=== PATIENT | female | born 1965 | race Caucasian/White ===

== ENCOUNTER → 2021-01-06 13:48 | Outpatient (BNVA) | payer OTHER, SELFPAY | PROVIDERS: PCP Internal Medicine; Visit Provider Surgery ==

== ENCOUNTER → 2021-01-25 15:03 | Outpatient (BNV) | payer OTHER, SELFPAY | PROVIDERS: PCP Internal Medicine; Visit Provider Internal Medicine | DX: D05.11 Intraductal carcinoma in situ of right breast (principal); M85.80 Other specified disorders of bone density and structure, unspecified site; Z79.811 Long term (current) use of aromatase inhibitors; Z92.3 Personal history of irradiation | CPT/HCPCS: 99214 ==

== ENCOUNTER 2021-07-13 14:59 | Outpatient (REF) | payer OTHER, SELFPAY ==
--- NOTE | ~2021-07-13 | MM_ITS ---
EXAMINATION: MM SCREENING DIGITAL BREAST TOMOSYNTHESIS, BILATERAL CLINICAL INFORMATION: Screening. Asymptomatic. 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 Due for yearly. COMPARISON: Mammography: 07/07/2020, 05/29/2019, 05/16/2018, outside mammography [facility] 06/23/2017, 12/06/2016 TECHNIQUE: Digital breast tomosynthesis is performed in both the craniocaudal and mediolateral oblique views along with computer-aided detection (CAD). Synthesized 2D images are generated from the tomosynthesis. Additional exaggerated right CC view is provided. FINDINGS: There are scattered areas of fibroglandular density (ACR BI-RADS breast composition Category b). There are postsurgical changes on the right with stable scarring posterior upper outer quadrant. There is no developing density or interval mass. Parenchymal pattern is similar to prior study. No abnormal calcifications. The axilla are unremarkable. No significant changes. MM/MM tomosynthesis screening BI IMPRESSION: No mammographic evidence of malignancy. Post therapy changes right breast. ASSESSMENT: BI-RADS 2: Benign RECOMMENDATION: Routine annual mammography screening. This patient's information was entered into a reminder system with a target due date for their next mammogram.
== END 2021-07-13 15:00 | disposition home or self-care (01) ==
LOC: HO.MAMMO 14:59
PROVIDERS: PCP Internal Medicine; Visit Provider Internal Medicine
DX: Z12.31 Encounter for screening mammogram for malignant neoplasm of breast (principal)
CPT/HCPCS: 77063; 77067

== ENCOUNTER → 2021-08-03 15:31 | Outpatient (BNVA) | payer OTHER, SELFPAY | PROVIDERS: PCP Internal Medicine; Visit Provider Surgery ==

== ENCOUNTER 2021-09-07 14:27 | Outpatient (REF) | payer OTHER, SELFPAY ==
--- NOTE | ~2021-09-07 | MM_ITS ---
EXAMINATION: BONE DENSITOMETRY CLINICAL INDICATION: Osteopenia. On aromatase inhibitor. COMPARISON: Baseline BD dated 02/28/2019. TECHNIQUE: Using a [employer] DXA System (software version: 13.1) manufactured by [employer], dual-energy x-ray absorptiometry was performed of the lumbar spine and left hip. The images are of good technical quality. Summary results are attached. FINDINGS: AP SPINE L1-L4: Current: BMD 1.037 g/cm2, Z-score -0.5, T-score -1.2, osteopenia, 6.4% decrease from baseline (<5% change is not significant). Baseline: BMD 1.108 g/cm2. LEFT FEMUR, NECK: Current: BMD 0.796 g/cm2, Z-score -0.8, T-score -1.7, osteopenia. Baseline: BMD 0.842 g/cm2. LEFT FEMUR, TOTAL: Current: BMD 0.803 g/cm2, Z-score -1.0, T-score -1.6, osteopenia, 5.9% decrease from baseline (<5% change is not significant). Baseline: BMD 0.853 g/cm2. IDENTIFIED RISK FACTORS: Menopause, alcohol (3 or more units per day). HISTORY OF FRACTURE: None listed. MEDICATIONS: Calcium, vitamin D. MM/XR DEXA axial skeleton IMPRESSION: 1. DIAGNOSIS: Osteopenia based on the lowest T-score value of -1.7 in the femoral neck applying World Health Organization criteria. 2. 10-YEAR FRACTURE RISK PREDICTION, FRAX: Major osteoporotic fracture (clinical spine, forearm, hip or shoulder) 8.2%. Hip fracture 0.8%. 3. Treatment Recommendations: NOF guidelines recommend consideration for treatment in postmenopausal women and men age 50 and older presenting with the following: -A hip or vertebral (clinical or morphometric) fracture. -T-score less than or equal to -2.5 at the femoral neck or spine after appropriate evaluation to exclude secondary causes. -Low bone mass at the hip or spine and a 10-year fracture probability by FRAX of greater than or equal to 3% for hip fracture or greater than or equal to 20% for major osteoporotic fracture based on the [place] adapted WHO algorithm. 4. Other Recommendations: All treatment decisions require clinical judgment and consideration of individual patient factors, including patient preferences, comorbidities, previous drug use, risk factors not captured in the FRAX model (e.g. frailty, falls, vitamin D deficiency, increased bone turnover, interval significant decline in bone density) and possible under or overestimation of fracture risk by FRAX. Additional medical evaluation for secondary cause of low bone mineral density may be appropriate. FUTURE SCAN RECOMMENDATION: People with diagnosed cases of osteoporosis or at high risk for fracture should have regular bone mineral density tests. For patients eligible for Medicare, routine testing is allowed once every 2 years. The testing frequency can be increased to one year for patients who have rapidly progressing disease, those who are receiving or discontinuing medical therapy to restore bone mass, or have additional risk factors.
== END 2021-09-07 14:28 | disposition home or self-care (01) ==
LOC: HO.MAMMO 14:27
PROVIDERS: Visit Provider Internal Medicine
DX: Z13.820 Encounter for screening for osteoporosis (principal); M85.80 Other specified disorders of bone density and structure, unspecified site; Z78.0 Asymptomatic menopausal state; Z79.899 Other long term (current) drug therapy
CPT/HCPCS: 77080

== ENCOUNTER → 2022-03-17 10:36 | Outpatient (BNVA) | payer OTHER, SELFPAY | PROVIDERS: PCP Internal Medicine; Visit Provider Surgery | DX: D05.11 Intraductal carcinoma in situ of right breast (principal); Z90.11 Acquired absence of right breast and nipple | CPT/HCPCS: 99212 ==

== ENCOUNTER 2022-07-18 12:28 | Outpatient (REF) | payer OTHER, SELFPAY ==
--- NOTE | ~2022-07-18 | MM_ITS ---
EXAMINATION: MM SCREENING DIGITAL BREAST TOMOSYNTHESIS, BILATERAL CLINICAL INFORMATION: Screening. Asymptomatic. Status post right lumpectomy. COMPARISON: Mammography: 07/13/2021 and studies dating back to 07/10/2012. TECHNIQUE: Digital breast tomosynthesis is performed in both the craniocaudal and mediolateral oblique views along with computer-aided detection (CAD). Synthesized 2D images are generated from the tomosynthesis. Exaggerated right craniocaudal view also performed. FINDINGS: There are scattered areas of fibroglandular density (ACR BI-RADS breast composition category B). Within the inferior aspect of the left breast, approximately 4.5 cm from nipple, there are some calcifications present which are difficult to prove that they are vascular in nature; however, there is no correlate seen on craniocaudal view. Recommend spot magnification view of the left breast in mediolateral oblique projection and 90-degree mediolateral views. Postsurgical architectural distortion is seen upper outer aspect of the right breast. MM/MM tomosynthesis screening BI IMPRESSION: Calcifications inferior left breast for further evaluation with spot magnification views. ASSESSMENT: BI-RADS 0: Incomplete - Need Additional Imaging Evaluation RECOMMENDATION: 1. Additional views of the left breast. 2. Targeted ultrasound if warranted after review of the additional views. 3. Radiology department staff will contact the patient for additional imaging. This patient's information was entered into a reminder system with a target due date for their next mammogram.
== END 2022-07-18 12:29 | disposition home or self-care (01) ==
LOC: HO.MAMMO 12:28
PROVIDERS: PCP Internal Medicine; Visit Provider Internal Medicine
DX: Z12.31 Encounter for screening mammogram for malignant neoplasm of breast (principal)
CPT/HCPCS: 77063; 77067

== ENCOUNTER 2022-07-29 08:56 | Outpatient (REF) | payer OTHER, SELFPAY ==
--- NOTE | ~2022-07-29 | MM_ITS ---
EXAMINATION: MM DIAGNOSTIC DIGITAL MAMMOGRAPHY, LEFT CLINICAL INFORMATION: Recall from screening for question of calcifications lower left breast on synthesized MLO view. Prior history contralateral right high-grade DCIS status post lumpectomy 2017. COMPARISON: Mammography: 07/18/2022, 07/13/2021 TECHNIQUE: Digital mammography is performed in the following views: Magnification MLO, magnification ML. FINDINGS: There are scattered areas of fibroglandular density (ACR BI-RADS breast composition Category b). The additional magnification views show no grouped calcifications. The recent mammography shows no appreciable calcifications on MLO tomography and no grouped calcification on CC view suggesting pseudocalcification digital processing artifact on recent screening. Results are discussed with the patient at time of visit. MM/MM added views LT IMPRESSION: No significant changes from prior studies. No grouped calcifications lower left breast. ASSESSMENT: BI-RADS 1: Negative RECOMMENDATION: Routine annual mammography screening. This patient's information was entered into a reminder system with a target due date for their next mammogram.
== END 2022-07-29 08:57 | disposition home or self-care (01) ==
LOC: HO.MAMMO 08:56
PROVIDERS: PCP Internal Medicine; Visit Provider Internal Medicine
DX: R92.1 Mammographic calcification found on diagnostic imaging of breast (principal)
CPT/HCPCS: 77065

== ENCOUNTER → 2022-09-20 13:55 | Outpatient (BNVA) | payer OTHER, SELFPAY | PROVIDERS: PCP Internal Medicine; Visit Provider Surgery | DX: D05.11 Intraductal carcinoma in situ of right breast (principal); Z79.811 Long term (current) use of aromatase inhibitors | CPT/HCPCS: 99212 ==

== ENCOUNTER → 2023-03-21 13:56 | Outpatient (BNVA) | payer OTHER, SELFPAY | PROVIDERS: PCP Internal Medicine; Visit Provider Surgery | DX: D05.11 Intraductal carcinoma in situ of right breast (principal) | CPT/HCPCS: 99212 ==

== ENCOUNTER 2023-07-24 12:03 | Outpatient (REF) | payer OTHER, SELFPAY ==
--- NOTE | ~2023-07-24 | MM_ITS ---
EXAMINATION: MM SCREENING DIGITAL BREAST TOMOSYNTHESIS, BILATERAL CLINICAL INFORMATION: Screening. Asymptomatic. The patient has a history of conservatively treated right DCIS diagnosed in 2017. COMPARISON: Mammography: This study is compared with prior exams dating back to 2019. TECHNIQUE: Digital breast tomosynthesis is performed in both the craniocaudal and mediolateral oblique views along with computer-aided detection (CAD). Synthesized 2D images are generated from the tomosynthesis. FINDINGS: There are scattered areas of fibroglandular density (ACR BI-RADS breast composition Category b). There are no significant masses, abnormal calcifications, or other abnormalities. There are postsurgical changes in the upper outer quadrant of the right breast. MM/MM tomosynthesis screening BI IMPRESSION: No mammographic evidence of malignancy. ASSESSMENT: BI-RADS BI-RADS 2 - Benign Findings RECOMMENDATION: Routine annual mammography screening. 1 year F/U This examination should not preclude the clinical evaluation of a suspicious palpable abnormality. This patient's information was entered into a reminder system with a target due date for their next mammogram.
== END 2023-07-24 12:04 | disposition home or self-care (01) ==
LOC: HO.MAMMO 12:03
PROVIDERS: PCP Internal Medicine; Visit Provider Internal Medicine
DX: Z12.31 Encounter for screening mammogram for malignant neoplasm of breast (principal)
CPT/HCPCS: 77063; 77067

== ENCOUNTER → 2023-07-24 12:15 | Outpatient (BNV) | payer OTHER, SELFPAY | PROVIDERS: PCP Internal Medicine; Visit Provider Radiology Diagnostic Radiology | DX: Z12.31 Encounter for screening mammogram for malignant neoplasm of breast (principal) | CPT/HCPCS: 77063; 77067 ==

== ENCOUNTER 2024-04-04 14:49 | Outpatient (AMB) | payer OTHER, SELFPAY ==
--- NOTE | 2024-04-04 14:59 | MHC.OFFVIS ---
Vital Signs 04/04/24 15:10 Height 5 ft 5 in Weight 170 lb BMI 28.3 BP 132/63 Blood Pressure Location Lt brachial Position Sitting Pulse 63 Intake Visit Reasons: yearly follow-up breast exam Intake Note: Patient is seen in office for 6 month follow up visit, breast exam. 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 Guy Falcon and former patient of Dr. Song presenting for a breast cancer evaluation 7 years following diagnosis of a ductal carcinoma in situ of the right breast. She was diagnosed in June 2017 with an abnormal finding in the right breast upper outer quadrant. She subsequently underwent a right partial mastectomy with pathology revealing a ductal carcinoma in situ, cribriform type, high grade with focal necrosis. She completed radiation therapy to the right breast on 10/11/2017. She was initially started on tamoxifen but developed vision changes and was subsequently switched to letrozole. She stopped the letrozole in February 2023. Her last mammogram dated 07/24/2023 revealed no mammographic evidence of malignancy (BI-RADS 2). Routine annual mammography screening was recommended. She denies any new breast symptoms and generally feels well. [facility] Medical History Diverticulitis Surgical History History of hemorrhoidectomy (06/22/21) History of lumpectomy of right breast (07/05/17) History of tubal ligation Family History Father Family history of Alzheimer's disease Mother History of bladder cancer Multiple myeloma Sister History of schizoaffective disorder Brother Melanoma Social History Household Members: Significant Other [facility] Alcohol intake: current Alcohol intake frequency: 0-2 drinks per day Alcohol type: wine Patient Tobacco Use Status: Former Tobacco user Quit Date: 1988 Tobacco use type: Cigarette service: No Current occupational status: employed Review of Systems Const All systems reviewed & are unremarkable except as noted in HPI and below Resp Reports no additional complaints Denies nipple discharge Skin/Breast Denies bleeding lesions, Denies breast skin changes, Denies breast pain, Denies breast mass, Denies change in breast shape and Denies nipple discharge Gurpreet/Lymph Denies lymphadenopathy Physical Exam Const General: cooperative, healthy appearing, comfortable and no acute distress Eyes Conjunctivae: conjunctivae normal Sclerae: sclerae normal EOM: EOMs intact bilaterally Neck Neck: Yes normal visual inspection, Yes full ROM and Yes no lymphadenopathy Chest Other: Left breast: No skin change, no nipple retraction, no nipple discharge, no palpable mass, no enlarged lymph nodes. Right breast: Well-healed incision in the upper outer quadrant. No new skin change, no nipple retraction, no nipple discharge, no palpable mass, no enlarged lymph nodes Resp Other: Breathing comfortably on room air, no shortness of breath Skin Other: Warm, dry, no rash Extrem General: Yes no clubbing, cyanosis or edema Assessment & Plan Assessment & Plan (1) Ductal carcinoma in situ (DCIS) of right breast: Code(s): D05.11 - Intraductal carcinoma in situ of right breast Category: Medical Plan 58-year-old female patient returning for follow-up breast examination after right breast lumpectomy for ductal carcinoma in situ in 2017. She feels well and denies any new breast symptoms. Her most recent mammogram of 07/24/2023 no mammographic evidence of malignancy (BI-RADS 2). She is scheduled for follow-up mammogram on 08/05/2024. Examination today revealed normal findings with no new suspicious findings in either breast with no evidence of recurrence disease. She will follow-up in 1 year for routine breast examination and should call sooner for any new concerns. She will continue to follow up with Dr. Hu yearly as well. Coding Level of Care Code Est Pt Level 3 (95856) Diagnoses Ductal carcinoma in situ (DCIS) of right breast D05.11
[2024-04-04 15:10] VITALS: BP 132/63; PULSE 63; BMI 28.3
== END 2024-04-04 15:48 | disposition home or self-care (01) ==
PROVIDERS: PCP Internal Medicine; Visit Provider Surgery
DX: D05.11 Intraductal carcinoma in situ of right breast (principal)
CPT/HCPCS: 99213

== ENCOUNTER → 2024-04-04 14:49 | Outpatient (BNVA) | payer OTHER, SELFPAY | PROVIDERS: PCP Internal Medicine; Visit Provider Surgery | DX: D05.11 Intraductal carcinoma in situ of right breast (principal) | CPT/HCPCS: 99212 ==

== ENCOUNTER 2024-05-13 09:39 | Outpatient (REF) | payer OTHER, SELFPAY ==
[2024-05-13 10:43] LABS: Alanine Aminotransferase 21 U/L (0-31); Albumin Level 4.5 g/dL (3.5-5.0); Alkaline Phosphatase 74 U/L (39-117); Anion Gap 13 (12-20); Aspartate Amino Transferase 25 U/L (5-31); Bilirubin Total 0.6 mg/dL (0.0-1.0); Blood Urea Nitrogen 8 mg/dL (9-16); Calcium 9.4 mg/dL (8.4-10.2); Carbon Dioxide 26 mmol/L (22-29); Chloride 100 mmol/L (96-108); Estimated Glomerular Filt Rate > 60; Glucose Random 95 mg/dL (60-115); Potassium 4.8 mmol/L (3.3-5.1); Sodium 134 mmol/L (135-145); Total Protein 7.3 g/dL (6.5-8.0)
== END 2024-05-13 09:40 | disposition home or self-care (01) ==
LOC: HO.LAB 09:39
PROVIDERS: Visit Provider Internal Medicine
DX: D05.11 Intraductal carcinoma in situ of right breast (principal)
CPT/HCPCS: 36415; 80053

== ENCOUNTER 2024-08-15 13:16 | Outpatient (REF) | payer OTHER, SELFPAY ==
--- NOTE | ~2024-08-15 | MM_ITS ---
EXAMINATION: MM SCREENING DIGITAL BREAST TOMOSYNTHESIS, BILATERAL CLINICAL INFORMATION: Screening. Asymptomatic. COMPARISON: Mammography: Comparison is made with available priors TECHNIQUE: Digital breast mammography with tomosynthesis is performed in both the craniocaudal and mediolateral oblique views along with computer-aided detection (CAD). FINDINGS: There are scattered areas of fibroglandular density (ACR BI-RADS breast composition Category b). Postsurgical changes in the upper-outer right breast are stable. There are no significant masses, abnormal calcifications, or other abnormalities. MM/MM tomosynthesis screening BI IMPRESSION: No mammographic evidence of malignancy. ASSESSMENT: BI-RADS BI-RADS 2 - Benign Findings RECOMMENDATION: Routine annual mammography screening. 1 year F/U This examination should not preclude the clinical evaluation of a suspicious palpable abnormality. This patient's information was entered into a reminder system with a target due date for their next mammogram. Electronically signed by: Trinidad Ramirez DO 08/28/2024 08:22 AM EDT
== END 2024-08-15 13:17 | disposition home or self-care (01) ==
LOC: HO.MAMMO 13:16
PROVIDERS: PCP Internal Medicine; Visit Provider Internal Medicine
DX: Z12.31 Encounter for screening mammogram for malignant neoplasm of breast (principal)
CPT/HCPCS: 77063; 77067

== ENCOUNTER → 2024-08-15 13:30 | Outpatient (BNV) | payer OTHER, SELFPAY | PROVIDERS: PCP Internal Medicine; Visit Provider Internal Medicine | DX: Z12.31 Encounter for screening mammogram for malignant neoplasm of breast (principal) | CPT/HCPCS: 77063; 77067 ==

== ENCOUNTER 2025-04-29 13:54 | Outpatient (REF) | payer OTHER, SELFPAY ==
[2025-04-29 14:05] LABS: MANUAL DIFF FLAG NO
[2025-04-29 14:59] LABS: Basophils Percent Auto 0.5 % (0-2); Eosinophils Absolute Auto 0.1 X10*3/uL (0.0-0.4); Eosinophils Percent Auto 1.6 % (0-4); Hematocrit 38.9 % (37.0-47.0); Hemoglobin 13.6 g/dl (12.0-16.0); Imm Gran Abs Auto 0.02 X10*3/uL (0.00-0.03); Imm Gran Pct Auto 0.5 % (0.0-0.4); Lymphocytes Absolute Auto 1.2 X10*3/uL (1.2-4.9); Lymphocytes Percent Auto 31.5 % (20-40); Mean Corpuscular Volume 91.5 fL (80.0-98.0); Mean Platelet Volume 10.3 fL (9.4-12.3); Monocytes Absolute Auto 0.3 X10*3/uL (0.1-1.2); Monocytes Percent Auto 7.8 % (2-11); Neutrophils Absolute Auto 2.2 x10*3/uL (2.0-8.3); Neutrophils Percent Auto 58.1 % (45-73); Platelet Count 244 X10*3/uL (160-400); Red Blood Count 4.25 X10*6/uL (4.20-5.50); White Blood Count 3.7 X10*3/uL (4.8-10.8)
--- OUTSIDE RECORDS SUMMARY | 2025-04-29 15:42 | XMS_ITS | Clinical Summary ---
Author Organization [facility] it Address [address] [place] [address] Care Team Providers Care Electronic Die Maker Name Role Phone Guy Falcon MD Primary Care Provider [phone] Surgical History Surgery Date Site/Laterality Comments TUBAL LIGATION N/A PROCEDURE: HISTORICAL TUBAL LIGATION BREAST LUMPECTOMY Right PROCEDURE: HISTORICAL BREAST LUMPECTOMY Medical History Medical History Date Comments DCIS (ductal carcinoma in situ) .. DX:DCIS (ductal carcinoma in situ) Family History Medical History Relation Name Comments Diabetes Brother Hypertension Brother Hypertension Father Bladder Cancer Mother Hypertension Mother Multiple myeloma Mother Schizophrenia Sister Relation Name Status Comments Brother Father Mother Sister Social History Tobacco Use Types Packs/Day Years Used Date Smoking Tobacco: Former Cigarettes Q uit: 12/28/1979 Smokeless Tobacco: Never Alcohol Use Standard Drinks/Week Comments Yes 0 (1 standard drink = 0.6 oz pur e alcohol) Comments Unknown Sex and Gender Information Value Date Recorded Sex Assigned at Not on file Legal Sex Female 9:24 AM EST Gender Identity Not on file Sexual Orientation Not on file Obstetrics History Last Filed Vital Signs Vital Sign Reading Time Taken Comments Blood Pressure 130/82 05/16/2022 3:37 PM EDT Sitting L Arm Pulse 69 05/16/2022 3:37 PM EDT Temperature - - Respiratory Rate - - Oxygen Saturation - - Inhaled Oxygen Concentration - - Weight 73.6 kg (162 lb 3.2 oz) 05/16/2022 3:37 PM EDT Height - - Body Mass Index - - Plan of Treatment Health Maintenance Due Date Last Done Comments Breast Cancer Screening 1963 Cervical Cancer Screening: Pap Smear 1984 Pneumococcal Vaccine: 50+ Years (1 of 1 - PCV) 2013 Colorectal Cancer Screening: Colonoscopy 11/05/2022 Depression Screening 11/05/2022 HIV Screening 11/05/2022 Hepatitis C Screening 11/05/2022 Social Influencers of Health Screening 11/05/2022 COVID-19 Vaccine ( season) 2024 09/20/2023, 03/23/2022, 09/22/2021, Additional history exists Influenza Vaccine (Season Ended) 2025 09/20/2023, 07/27/2022, 08/11/2021, Additional history exists DTaP,Tdap,and Td Vaccines (2 - Td or Tdap) 08/11/2031 08/11/2021 Zoster Vaccines Completed 05/05/2023, 12/10/2022 RSV Immunization Adult Patients Completed 10/04/2023 HIB Vaccines Aged Out No longer eligi ble based on patient's age to complete this topic HPV Vaccines Aged Out No longer eligi ble based on patient's age to complete this topic Hepatitis A Vaccines Aged Out No long er eligible based on patient's age to complete this topic Hepatitis B Vaccines Aged Out No long er eligible based on patient's age to complete this topic IPV Vaccines Aged Out No longer eligi ble based on patient's age to complete this topic MMR Vaccines Aged Out No longer eligi ble based on patient's age to complete this topic Meningococcal ACWY Vaccine Aged Out N o longer eligible based on patient's age to complete this topic Meningococcal B Vaccine Aged Out No l onger eligible based on patient's age to complete this topic Pneumococcal Vaccine: Pediatrics (0 to 5 Years) and At-Risk Patients (6 to 64 Years) Aged Out No longer eligible based on patient's age to complete this topic RSV Immunization Patients Under 20 months Aged Out No longer eligible based on patient's age to complete this topic Varicella Vaccines Aged Out No longer eligible based on patient's age to complete this topic Care Teams Electronic Die Maker Relationship Specialty Start Date End Date Guy Falcon MD PCP - General Emergency Medicine 05/16/22
[2025-04-29 16:05] LABS: Alanine Aminotransferase 29 U/L (0-31); Albumin Level 4.6 g/dL (3.5-5.0); Alkaline Phosphatase 84 U/L (39-117); Anion Gap 12 (12-20); Aspartate Amino Transferase 35 U/L (5-31); Bilirubin Total 0.5 mg/dL (0.0-1.0); Blood Urea Nitrogen 11 mg/dL (9-16); Calcium 9.6 mg/dL (8.4-10.2); Carbon Dioxide 28 mmol/L (22-29); Chloride 97 mmol/L (96-108); Estimated Glomerular Filt Rate > 60; Glucose Random 104 mg/dL (60-115); Potassium 4.4 mmol/L (3.3-5.1); Sodium 133 mmol/L (135-145); Total Protein 7.4 g/dL (6.5-8.0)
== END 2025-04-29 13:55 | disposition home or self-care (01) ==
LOC: HO.LAB 13:54
PROVIDERS: PCP Internal Medicine; Visit Provider Internal Medicine
DX: D05.11 Intraductal carcinoma in situ of right breast (principal)
CPT/HCPCS: 36415; 80053; 85025; 99212

== ENCOUNTER 2025-04-29 14:07 | Outpatient (AMB) | payer OTHER, SELFPAY ==
--- NOTE | 2025-04-29 14:17 | A.OFFVIS_ITS ---
Vital Signs 3 04/29/25 14:25 Height 5 ft 5 in Weight 172 lb BMI 28.6 BP 129/59 L Blood Pressure Location Lt brachial Position Sitting Pulse 75 Intake Visit Reasons: yearly breast exam Intake Note: Patient is seen in office for one year follow up visit, breast exam. Patient c/o: denies any concerns regarding the breast mm sched: 08/21/25 Senior Analysis Specialist Required: No Regulatory Affairs Director: Regulatory Affairs Director Present Accompanied by: Self / Same As Patient Allergies hydrocodone [From Vicodin] Adverse Reaction (Mild, Verified 04/29/25 14:18) Itching Medication List - Last Reconciled 04/29/25 by Santos Onofre MD amlodipine 0.5 mg PO DAILY lactobacillus combination no.4 (Probiotic) 3,000 mmu cells PO DAILY letrozole 2.5 mg PO DAILY lorazepam 0.5 mg PO DAILY PRN prasterone (DHEA) (Intrarosa) 1 insert vaginal BEDTIME HPI Comments Details: 59-year-old female patient of Dr. Guy Falcon and former patient of Dr. Song presenting for a breast cancer evaluation 8 years following diagnosis of a ductal carcinoma in situ of the right breast. She was diagnosed in June 2017 with an abnormal finding in the right breast upper outer quadrant. She subsequently underwent a right partial mastectomy with pathology revealing a ductal carcinoma in situ, cribriform type, high grade with focal necrosis. She completed radiation therapy to the right breast on 10/11/2017. She was initially started on tamoxifen but developed vision changes and was subsequently switched to letrozole. She stopped the letrozole in February 2023. Her last mammogram dated 08/15/2024 revealed no mammographic evidence of malignancy (BI- RADS 2). Routine annual mammography screening was recommended. She denies any new breast symptoms and generally feels well. [facility] Medical History Diverticulitis Surgical History History of hemorrhoidectomy (06/22/21) History of lumpectomy of right breast (07/05/17) History of tubal ligation Family History Father Family history of Alzheimer's disease Mother History of bladder cancer Multiple myeloma Sister History of schizoaffective disorder Brother Melanoma Social History Household Members: Significant Other Housing: Condominium Alcohol intake: current Alcohol intake frequency: 0-2 drinks per day Alcohol type: wine Patient Tobacco Use Status: Former Tobacco user Tobacco use type: Cigarette service: No Current occupational status: employed Review of Systems Const All systems reviewed & are unremarkable except as noted in HPI and below Resp Reports no additional complaints Denies nipple discharge Skin/Breast Denies bleeding lesions, Denies breast skin changes, Denies breast pain, Denies breast mass, Denies change in breast shape and Denies nipple discharge Gurpreet/Lymph Denies lymphadenopathy Physical Exam Vital Signs: Last Vital Signs Pulse 75 04/29/25 14:25 BP 129/59 L 04/29/25 14:25 BMI result Body Mass Index 28.6 Const General: cooperative, healthy appearing, comfortable and no acute distress Eyes Conjunctivae: conjunctivae normal Sclerae: sclerae normal EOM: EOMs intact bilaterally Neck Neck: Yes normal visual inspection, Yes full ROM and Yes no lymphadenopathy Chest Other: Left breast: No skin change, no nipple retraction, no nipple discharge, no palpable mass, no enlarged lymph nodes. Right breast: Well-healed incision in the upper outer quadrant. No new skin change, no nipple retraction, no nipple discharge, no palpable mass, no enlarged lymph nodes Chest/axillae images: 2 1. Incision upper outer quadrant right breast Resp Other: Breathing comfortably on room air, no shortness of breath Skin Other: Warm, dry, no rash Neuro Other: Mobility Assessment: 1. 3 meter assessment time (seconds): 5 2. Gait observations: Normal balance and gait Extrem General: Yes no clubbing, cyanosis or edema Assessment & Plan Assessment & Plan (1) Ductal carcinoma in situ (DCIS) of right breast: Code(s): D05.11 - Intraductal carcinoma in situ of right breast Category: Medical Plan 59-year-old female patient returning for follow-up breast examination after right breast lumpectomy for ductal carcinoma in situ in 2017. She feels well and denies any new breast symptoms. Her most recent mammogram of 08/15/2024 revealed no mammographic evidence of malignancy (BI-RADS 2). Examination today revealed normal findings with no new suspicious findings in either breast with no evidence of recurrence disease. She will follow-up in 1 year for routine breast examination and should call sooner for any new concerns. She will continue to follow up with Dr. Hu yearly as well. Coding Level of Care Code Est Pt Level 3 (42941) Complex EM visit Add On G2211 Diagnoses Ductal carcinoma in situ (DCIS) of right breast D05.11
[2025-04-29 14:25] VITALS: BP 129/59; PULSE 75; BMI 28.6
== END 2025-04-29 14:40 | disposition home or self-care (01) ==
LOC: HO.HGS 14:09
PROVIDERS: PCP Internal Medicine; Visit Provider Surgery
DX: D05.11 Intraductal carcinoma in situ of right breast (principal)
CPT/HCPCS: 99213; G2211

== ENCOUNTER 2025-08-21 12:32 | Outpatient (REF) | payer OTHER, SELFPAY ==
--- OUTSIDE RECORDS SUMMARY | 2025-08-21 17:20 | XMS_ITS ---
Author Name [facility] Organization Unknown Care Team Organization Name Specialty Phone Email Start Date End Da te [facility] 10/04/2022 07/15/20 24
--- OUTSIDE RECORDS SUMMARY | 2025-08-21 17:20 | XMS_ITS | Patient Health Record ---
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 . . Medically necess cole to wear comfortable shoes at work; Duration: as needed 09/17/2018 Active Social History Tobacco Use: Social History Observation Description Date Details (start date - stop date) Former Smoker NA - NA Tobacco Use/Smoking Question Answer Notes Are you a: former smoker When did you stop smoking? 1988 Additional Findings: Tobacco Non-User Current no n-smoker Alcohol Screen Question Answer Notes Did you have a drink contain ing alcohol in the past year? Yes How often did you have a dri nk containing alcohol in the past year? 4 or more times a week (4 points) How many drinks did you have on a typical day when you were drinking in the past year? 3 or 4 drinks (1 point) How often did you have 6 or more drinks on one occasion in the past year? Never (0 point) Points 5 Interpretation Positive Tobacco use other than smoking: Question Answer Notes Are you an other tobacco user? No Plan Of Treatment Pending Test Test Name Order Date X ray : Foot, right 3V 09/17/2018 Insurance Providers Payer Name Payer Address Payer Phone Subscriber Number Group Number Insured Name Patient Relationship to Insured Coverage Start Date Coverage End Date [facility] [address] [place] [address] [phone] [id number] Deborah Mera Self - patient is the insured Medical (General) History Medical History History ICD Code Cancer - ductal carcinoma in situ Surgical History Surgery Date(Month/Year) tubal ligation 02/1996 lumpectomy 06/2018
== END 2025-08-21 12:33 | disposition home or self-care (01) ==
LOC: HO.MAMMO 12:32
PROVIDERS: PCP Internal Medicine; Visit Provider Internal Medicine
DX: Z12.31 Encounter for screening mammogram for malignant neoplasm of breast (principal)
CPT/HCPCS: 77063; 77067

== ENCOUNTER → 2025-08-21 13:00 | Outpatient (BNV) | payer OTHER, SELFPAY | PROVIDERS: PCP Internal Medicine; Visit Provider Internal Medicine | DX: Z12.31 Encounter for screening mammogram for malignant neoplasm of breast (principal) | CPT/HCPCS: 77063; 77067 ==

== ENCOUNTER 2025-11-04 09:53 | Outpatient (REF) | payer OTHER, SELFPAY ==
--- NOTE | ~2025-11-04 | MM_ITS ---
EXAMINATION: DXA BONE DENSITY AXIAL HISTORY: osteopenia TECHNIQUE: [employer] Dual energy absorptiometry (DEXA) of the lumbar spine, total left hip, and femoral neck was performed. COMPARISON: Comparison is made with the prior examination dated 09/07/2021. FINDINGS: The bone mineral density of the lumbar spine is 0.991 g/cm2, corresponding to a T-score of -1.6, and a Z-score of -0.6. This is indicative of osteopenia. This represents a BMD change of -4.4% compared to the prior exam. This is statistically significant. The bone mineral density of the left total hip is 0.806 g/cm2, corresponding to a T-score of -1.6, and a Z-score of -0.8. This is indicative of osteopenia. This represents a BMD change of 0.4% compared to the prior exam. This is not statistically significant. The bone mineral density of the left femoral neck is 0.810 g/cm2, corresponding to a T-score of -1.6, and a Z-score of -0.6. This is indicative of osteopenia. This represents a BMD change of 1.8% compared to the prior exam. FRACTURE RISK: The FRAX index suggests a ten year probability of major osteoporotic fracture of 20.1%, and of hip fracture 1.5%. MM/XR DEXA axial skeleton IMPRESSION: Based on bone mineral density, and according to World Health Organization (WHO) criteria, the diagnosis is consistent with osteopenia. Statistically, 68% of repeat scans fall within 1 SD (+/- 0.010 g/cm2 for AP spine L1-L4) and 1 SD (+/- 0.012 g/cm2 for femur total) FRAX is a trademark of the [employer] [place] [employer], a World Health Organization (WHO) Collaborating Center. Electronically signed by: Joseph Hinton MD 11/04/2025 10:16 AM [facility]
== END 2025-11-04 09:54 | disposition home or self-care (01) ==
LOC: HO.MAMMO 09:53
PROVIDERS: PCP Internal Medicine; Visit Provider Internal Medicine
DX: D05.11 Intraductal carcinoma in situ of right breast (principal)
CPT/HCPCS: 77080

== ENCOUNTER → 2025-11-04 10:00 | Outpatient (BNV) | payer OTHER, SELFPAY | PROVIDERS: PCP Internal Medicine; Visit Provider Radiology Diagnostic Radiology | DX: E28.39 Other primary ovarian failure (principal) | CPT/HCPCS: 77080 ==